=== PATIENT | female | born 1980 | race Caucasian/White ===

== ENCOUNTER 2019-02-21 13:53 | Emergency (ER) | payer OTHER ==
[~2019-02-21] VITALS: Ht 157.4 cm; Wt 72.6 kg
== END 2019-02-21 15:47 | disposition home or self-care (01) ==
LOC: ED 13:53
DX: S93.401A Sprain of unspecified ligament of right ankle, initial encounter (principal); X50.1XXA Overexertion from prolonged static or awkward postures, initial encounter; Y93.89 Activity, other specified; Y92.69 Other specified industrial and construction area as the place of occurrence of the external cause; Y99.9 Unspecified external cause status

== ENCOUNTER → 2020-02-18 | Outpatient (CLI) | payer OTHER | END | disposition home or self-care (01) | LOC: LAB 09:27 | PROVIDERS: ATTEND Nurse Practitioner | DX: R35.0 Frequency of micturition (principal); R31.9 Hematuria, unspecified ==

== ENCOUNTER 2022-02-18 14:19 | Emergency (ER) | payer OTHER ==
[~2022-02-18] VITALS: Ht 157.4 cm; Wt 77.1 kg
[2022-02-18 15:14] LABS: BASO # 0.1 10*3/uL (0.0-0.1); BASO % 0.5 % (0.0-1.0); EOS # 0.1 10*3/uL (0.0-0.4); EOS % 0.7 % (1.0-4.0); HEMATOCRIT 42.2 % (37.0-47.0); LYMPH # 1.7 10*3/uL (1.3-4.4); LYMPH % 17.2 % (27.0-41.0); MEAN CELL VOLUME 91.1 fl (81.0-99.0); MEAN CORPUSCULAR HGB 29.8 pg (27.0-31.0); MEAN CORPUSCULAR HGB CONC 32.7 g/dl (33.0-37.0); MEAN PLATELET VOLUME 9.9 fl (9.6-12.3); MONO # 0.6 10*3/uL (0.1-1.0); MONO % 5.5 % (3.0-9.0); NEUT # 7.6 10*3/uL (2.3-7.9); NEUT % 75.8 % (47.0-73.0); PLATELET COUNT AUTOMATED 312 10*3/uL (130-400); RED BLOOD COUNT 4.63 10*6/uL (4.10-5.10); RED CELL DISTRI WIDTH 12.9 % (0-14.5)
[2022-02-18 15:31] LABS: CHLORIDE 109 mmol/L (98-107); POTASSIUM 3.8 mmol/L (3.5-5.1); SODIUM 140 mmol/L (136-145)
[2022-02-18 15:41] LABS: ALKALINE PHOSPHATASE 90 U/L (45-117); BUN 8 mg/dl (7-24); CREATININE 0.72 mg/dL (0.55-1.02); SGOT/AST 14 IU/L (3-35); SGPT/ALT 29 U/L (12-78); TOTAL PROTEIN 7.8 gm/dL (6.4-8.2)
[2022-02-18 17:11] LABS: BILIRUBIN Negative (Negative); BLOOD Negative (Negative); CLARITY Clear (Clear); COLOR Yellow (Yellow); GLUCOSE Negative (Negative); KETONE Negative (Negative); LEUKO ESTERASE Negative (Negative); NITRITE Negative (Negative); PH 6.5 (4.5-8.0); SPECIFIC GRAVITY <= 1.005 (1.001-1.030); UROBILINOGEN 0.2 E.U./dl (0.0-1.0)
[2022-02-18 18:18] LABS: BACTERIA TRACE
== END 2022-02-18 18:22 | disposition home or self-care (01) ==
LOC: ED 14:19
PROVIDERS: Nurse Practitioner Family
DX: R42 Dizziness and giddiness (principal)